=== PATIENT | female | born 1995 | race Caucasian/White ===

== ENCOUNTER → 2020-12-24 | Outpatient (CLI) | payer OTHER ==
[2020-12-24] VITALS (13 sets, daily range): BP systolic 95–126; BP diastolic 62–81
[~2020-12-24] MED LIST: IRON325 PO
--- NOTE | 2020-12-29 12:55 | CARD ---
[address] [address] CARDIAC CATH REPORT Name: REGLA NEGRETE Room: [facility]#: [id number] Admission: 12/24/20 Attend Phys: Keshia Julian MD, Discharge: Date of : 89 Report #: [id number] THIS REPORT FOR: cc: Anais Malhotra Jacqueline D. FNP ~ Travon Singh MD [facility] DATE OF SERVICE: 12/24/2020 PROCEDURE: Tilt-table test. INDICATION: Syncope. DESCRIPTION OF PROCEDURE: After informed consent was obtained, the patient was brought to the cardiac catheterization holding area. The patient was in stable condition. Orthostatic blood pressures were checked and felt to be normal. The patient did not exhibit any orthostasis. At this point, the patient was placed on the tilt table test and strapped onto the table using the designated straps. The patient was then tilted to a 70-degree head upright position. The patient's blood pressure at this point in time was 107/63 mmHg with a pulse rate of 75 beats per minute. The patient's vital signs remained stable throughout the initial phase of the tilt table test and 20 minutes later, blood pressure was 115/72 mmHg with a pulse rate of 87 beats per minute. At this point, the patient was given 0.4 mg of nitroglycerin under the tongue. Blood pressure at that time was 119/74 mmHg with a pulse rate of 90 beats per minute. The patient's blood pressure exhibited transient decrease to a low of 95/65 beats per minute. The patient's pulse rate transiently increased to 85 beats per minute. There were no symptoms of syncope or near syncope. At termination of the test, the patient's blood pressure was 100/62 mmHg with a pulse rate of 88 beats per minute. IMPRESSION: 1. Tilt table test shows no evidence of neurocardiogenic syncope. 2. Orthostatic blood pressures were checked and there were no symptoms or signs to suggest orthostasis. <ELECTRONICALLY SIGNED> By: Travon Singh MD, FACC 12/29/20 1255 [id number] 01Travon Singh MD, FACC /nt
== END | disposition home or self-care (01) ==
LOC: M.CL 09:50
PROVIDERS: ATTEND Internal Medicine
DX: R55 Syncope and collapse (principal)

== ENCOUNTER → 2020-12-30 | Outpatient (CLI) | payer OTHER ==
--- NOTE | 2021-01-05 19:10 | EEG ---
[address] [address] EEG STUDY REPORT Name: REGLA NEGRETE Room: [facility].#: [id number] Admission: 12/30/20 Attend Phys: Anais Malhotra Discharge: Date of : 89 Report #: [id number] THIS REPORT FOR: cc: Anais Malhotra Jacqueline D. FNP ~ Cisco Merchant MD DATE OF SERVICE: 12/30/2020 This patient is being evaluated for syncope. EEG was done by placing the electrode by standard 10-20 system of electrode placement. Both referential and sequential montages were used for recording. Background activity in this patient's EEG is about 10 Hz and 30 microvolt. Photic stimulation is unremarkable. The patient became drowsy and that is associated with bilateral slowing and vertex sharp waves. Throughout the record, no active epileptiform activity was noticed. IMPRESSION: This patient's EEG is unremarkable. Thank you very much for this referral. <ELECTRONICALLY SIGNED> By: Cisco Merchant MD 01/05/21 [id number] Merchant MD /nt
== END ==
LOC: M.MRI 12-14 16:35
PROVIDERS: ATTEND Nurse Practitioner
DX: G43.109 Migraine with aura, not intractable, without status migrainosus (principal); R55 Syncope and collapse; R42 Dizziness and giddiness; R93.89 Abnormal findings on diagnostic imaging of other specified body structures; G93.3 Postviral and related fatigue syndromes; Z86.16 Personal history of COVID-19